=== PATIENT | male | born 1975 | race Caucasian/White ===

== ENCOUNTER 2019-01-30 21:43 | Emergency (ER) | payer MEDICAID, SELFPAY ==
[2019-01-30 21:44] VITALS: BP 122/69; PULSE 96; RESP 16; TEMP 36.4; O2SAT 100; BMI 29.7
[2019-01-30] MEDS: Fluorescein 1 MG STRIP 1 STRIP RIGHT EYE (22:00)
--- NOTE | 2019-01-30 22:22 | ED.DCSUM_ITS ---
- ER Visit Summary Date of Service: 01/30/19 Chief Complaint: Right eye pain History of Present Illness: The patient is a 43 M who presents with right eye pain that began yesterday. Patient states the pain is localized to the right eye. Patient states he was having some drainage and crusting this morning when he woke up. Patient describes the pain as burning. Patient also admits to some itching. Patient also admits to some redness in his right eye. Patient admits to photophobia. Patient denies any trauma or injury. Patient does not feel like there is a foreign body in his eye. Patient does not wear glasses or contacts. Patient states that when he is at work he is always wearing his safety glasses. Physical Examination: Vital signs are stable. Patient is afebrile. Patient is in no acute distress. Pupils are equal, round, and reactive to light bilaterally. Extraocular muscles are intact. There is some mild edema of the right upper eyelid. Anterior chamber was clear. Tetracaine and fluorescein dye was applied. There is a small punctate foreign body and corneal abrasion in the central cornea. Funduscopic examination was benign. Emergency Department Course and Treatment: Under slit-lamp examination, the foreign body was removed with an ophthalmic bur. There is a rust ring noted. There is still some residual rust ring. Patient was given erythromycin ophthalmic ointment with instructions to apply to the right eye 3 times daily. Patient was referred to ophthalmology for follow-up care in 2 to 3 days. Patient understood and was agreeable with the plan. All questions were answered. Disposition: Discharge home Impression: 1. Corneal foreign body right eye 2. Corneal abrasion right eye This note was generated with [employer] dictation software. It may contain incorrect words, spelling, and punctuation that were not noted in review of the chart prior to signing ED Disposition - Plan for ED Patient: Disposition: Home or Assisted Living Diagnosis: Corneal foreign body with residual material, Right corneal abrasion Instructions: ED Corneal Abrasion, CORNEAL FOREIGN BODY, Removed, w/ Rust Ring Referrals: [facility],Out of [NON-STAFF] -
[2019-01-30 23:04] VITALS: BP 137/78; PULSE 102; RESP 16; O2SAT 97
[2019-01-30] MEDS: Tetracaine 0.5% Ophthalmic Bottle 1 DRP RIGHT EYE (23:04)
[2019-01-30] MEDS: Erythromycin Base 1 OPTH.TUBE 1 APPLIC RIGHT EYE (23:04)
== END 2019-01-30 23:06 | disposition home or self-care (01) ==
PROVIDERS: Emergency Provider Emergency Medicine; Family Provider Nurse Practitioner; PCP Nurse Practitioner
DX: T15.91XA Foreign body on external eye, part unspecified, right eye, initial encounter (principal); S05.01XA Injury of conjunctiva and corneal abrasion without foreign body, right eye, initial encounter; E78.00 Pure hypercholesterolemia, unspecified; Z79.899 Other long term (current) drug therapy; X58.XXXA Exposure to other specified factors, initial encounter; Y93.89 Activity, other specified; Y92.89 Other specified places as the place of occurrence of the external cause; Y99.8 Other external cause status
CPT/HCPCS: 65222; 10120; 99282

== ENCOUNTER 2019-07-28 14:52 | Emergency (ER) | payer SELFPAY ==
[2019-07-28 14:53] VITALS: BP 148/98; PULSE 101; RESP 18; TEMP 36.9; O2SAT 98; BMI 30.8
--- NOTE | 2019-07-28 15:37 | ED.VISSUMM ---
- ER Visit Summary Date of Service: 07/28/19 Chief Complaint: Suprapubic pain for months History of Present Illness: The patient is a 44 M has medical history of 1 prior kidney stone high cholesterol. Prior vasectomy, appendectomy and right rotator cuff surgery. Patient states since the first week in May he has had suprapubic pain radiating up his abdomen around both flanks. He has been evaluated at the [facility] he has had CAT scans without any diagnosis. Today he thought his urine was either cloudy or grossly bloody. States he is able to urinate. Has had normal bowel movements. He is scheduled for a colonoscopy in the next 1 to 2 weeks. No fever. No trauma. Physical Examination: Middle-aged male no acute distress vital signs stable afebrile. H EENT exam unremarkable. Moist extremities. Neck nontender no lymphadenopathy. Lungs clear to auscultation bilaterally. Heart regular rhythm no murmur. Abdomen soft, nontender, nondistended. Normal bowel sounds no peritoneal signs. No signs of obstruction. Right upper and lower quadrant unremarkable. Suprapubic area is unremarkable. Sternal area areas unremarkable no obvious hernia. Rectal exam normal tone. No mass. Enlarged but not tender or boggy or warm prostate. No signs of prostatitis. Remedies moves all 4. Neurovascular intact. No cauda equina. Normal motor strength sensation lower extremities. Back nontender. Neurologically is awake alert with no focal motor or sensory deficits. Test Results: Normal white count 7. Hemoglobin 14. Chemistries unremarkable normal creatinine and gap. UA shows blood and 4+ bacteria but no white cells or nitrates. A urine culture was also ordered. I will be followed up. Emergency Department Course and Treatment: Reproducible suprapubic pain for months. UA and screening labs obtained. Treatment Plan: Repeat exam no change. Abdomen benign. At 1900 p.m. Discussed test results with the patient in outpatient follow-up. Also discussed with him following up with a urologist which he seen before in the past at the [facility] due to his hematuria today. Disposition: Discharge Impression: Acute suprapubic abdominal and pelvic pain of uncertain etiology Hematuria of uncertain etiology Urine culture pending This note was generated with [employer] software. It may contain incorrect words, spelling, and punctuation that were not noted in review of the chart prior to signing ED Disposition - Plan for ED Patient: Referrals: David Ku MD [Primary Care Provider] -
[2019-07-28 15:52] VITALS: BP 118/81; PULSE 91; RESP 16; O2SAT 98
[2019-07-28 15:52] LABS: Mucous, Urine 0 SEEN /hpf (<or=2+); Squamous Epithelial Cells - UA 0 SEEN /hpf (0-5)
[2019-07-28 15:56] LABS: Color, Urine Yellow (Yellow); Glucose, Dipstick Normal (Normal); Ketone-Dipstick 5 mg/dl (Negative); Leukocyte Esterase-Dipstick 25 /ul (Negative); Nitrite-Dipstick Negative (Negative); Occult Blood-Urine 250 /ul (Negative); Protein-Dipstick 30 mg/dl (Negative); Urine Bilirubin Dipstick Negative (Negative); Urine Clarity Turbid (Clear); Urine Urobilinogen 1 mg/dl (Normal)
[2019-07-28 16:02] LABS: Absolute Lymphocyte Count 0.98 X10^3/uL (0.83-4.51); Absolute Neutrophil Count 5.6 X10^3/uL (2.0-7.7); Basophil# 0.04 X10^3/uL; Basophil% 0.5 % (0-1); Eosinophil# 0.11 X10^3/uL; Eosinophils% 1.5 % (0-5); Hematocrit 45.8 % (40-54); Hemoglobin 14.5 g/dL (13.0-16.5); Lymphocyte # 0.98 X10^3/ul (4.0); Lymphocyte % 13.3 % (19-41); Mean Corp Hgb Conc 31.7 g/dL (32-36); Mean Corpuscular Hgb 26.5 pg (27.0-32.0); Mean Corpuscular Volume 83.7 fL (80-94); Mean Platelet Vol. 8.8 fl (6.2-12.0); Monocyte# 0.59 X10^3/uL; NRBC Flagged by Analyzer 0 % (0-5); Neutrophil % 76.2 % (47-70); Platelet Count 334 K/mm3 (150-450); RBC Distribution Width CV 12.8 % (11.6-14.6); RBC Distribution Width SD 38.8 fl (35.1-43.9); Red Blood Count 5.47 M/mm3 (4.6-6.2); White Blood Count 7.4 K/mm3 (4.4-11.0)
[2019-07-28 16:05] LABS: Anion Gap 4 (5-15); BUN 24 mg/dL (7-18); BUN/Creat Ratio 21.4 RATIO (10-20); Calcium,Total 9.6 mg/dL (8.5-10.1); Chloride 108 mmol/L (98-107); Creatinine, Serum 1.12 mg/dL (0.70-1.30); EST Glomerular Filtration Rate 75 mL/min (>60); Est Glom Filt Rate - Afr Amer 91 mL/min (>60); Estimated Creatinine Clearance 80.58 ml/min; Glucose 98 mg/dL (74-106); Potassium 4.3 mmol/L (3.5-5.1); Sodium Level 139 mmol/L (136-145)
[2019-07-28 16:10] LABS: Amorphous Sediment 2+; Bacteria 4+ /hpf (None Seen); Red Blood Cells-Urine > 100 SEEN /hpf (0-5); White Blood Cells 0-5 SEEN /hpf (0-5)
[2019-07-28 17:13] VITALS: BP 117/75; PULSE 89; RESP 16; O2SAT 97
--- NOTE | 2019-07-28 19:00 | ED.DEP ---
ED Disposition - Plan for ED Patient: Disposition: Home or Assisted Living Instructions: PELVIC PAIN, Unknown Cause, Hematuria Referrals: David Ku MD [Primary Care Provider] - As soon as possible Additional Instructions: You have blood in your urine and bacteria but currently no obvious signs of infection. A urine culture was sent and await for those results. If it is positive for an infection you will be started on antibiotics. Do the blood in your urine if we do not have a cause like infection then you are going to need to see a urologist and you may need cystoscopy or a scope to look inside your bladder. Your blood counts, electrolytes and kidney function are all normal.
== END 2019-07-28 19:11 | disposition home or self-care (01) ==
PROVIDERS: Emergency Provider Emergency Medicine; PCP Internal Medicine
DX: R10.2 Pelvic and perineal pain (principal); R10.9 Unspecified abdominal pain; R31.9 Hematuria, unspecified; R11.0 Nausea
CPT/HCPCS: 80048; 81001; 85025; 87086; 99284; A4216